=== PATIENT | female | born 1995 | race Caucasian/White ===

== ENCOUNTER 2022-09-24 07:10 | Inpatient (IN) | payer MEDICAID, SELFPAY ==
[2022-09-24] VITALS (47 sets, daily range): BP systolic 109–141; BP diastolic 54–96; PULSE 71–110; RESP 14; TEMP 36.4–37.1; O2SAT 98–100; BMI 47.9
[2022-09-24] MEDS: Lactated Ringers 1,000 ML 200 ML IV ×2 (08:15→12:54)
[2022-09-24] MEDS: Oxytocin 15 Units/NS 250ml 15 UNITS/250 ML IV.SOLN 2 UNITS IV (08:29)
[2022-09-24 08:47] LABS: Absolute Lymphocyte Count 2.38 X10^3/uL (0.83-4.51); Absolute Neutrophil Count 7.1 X10^3/uL (2.0-7.7); Basophil# 0.04 X10^3/uL; Basophil% 0.4 % (0-1); Eosinophil# 0.18 X10^3/uL; Eosinophils% 1.7 % (0-5); Hematocrit 35.9 % (37-47); Hemoglobin 11.6 g/dL (12.0-15.0); Lymphocyte # 2.38 X10^3/ul (0.83-4.51); Lymphocyte % 22.7 % (19-41); Mean Corp Hgb Conc 32.3 g/dL (32-36); Mean Corpuscular Volume 83.7 fL (81-99); Mean Platelet Vol. 10.5 fl (6.2-12.0); Monocyte# 0.66 X10^3/uL; Monocyte% 6.3 % (0-10); NRBC Flagged by Analyzer 0 % (0-5); Neutrophil # 7.13 X10^3/uL (2.7-7.7); Neutrophil % 68.1 % (47-70); Platelet Count 326 K/mm3 (150-450); RBC Distribution Width CV 14.5 % (11.6-14.6); RBC Distribution Width SD 43.5 fl (35.1-43.9); Red Blood Count 4.29 M/mm3 (4.2-5.4); White Blood Count 10.5 K/mm3 (4.4-11.0)
--- NOTE | 2022-09-24 08:54 | HP.PCM.OB_ITS ---
HPI - General General Date of Admission: 09/24/22 HPI Narrative SERENA LARA, is a 26 F at 39.5 weeks gestation who presents for a scheduled induction of labor for obesity. Maternal Data Information RYAN Calculator Estimated Delivery Date Method Current WG Current Estimate 09/26/22 Manual 39w 5d PFSH PFSH Home Medications tmmyfthe-[id number]-[id number]-FA 1 mg tablet 1 tab PO DAILY 09/24/22 [History Last Taken 09/23/22 06:00] Allergy/AdvReac Type Severity Reaction Status Date / Time No Known Allergies Allergy Verified 09/24/22 08:45 Social History Smoking Status: Former smoker History Elective abortions Hx Para 1 Spontaneous abortions Hx # Term Pregnancies Ectopic pregnancies Hx # Pregnancies Multiple births # of living children Visit Details OB Flowsheet Initial Weight: Not Recorded Date -?-?-?-?-?-?-?-?-?-?-?-?- EGA Weight BP Urine Prot -?-?-?-?-?-?-?-?-?-?-?-?- Glucose FHR FuHt Pres Dilation -?-?-?-?-?-?-?-?-?-?-?-?- Effaced St Visit Note 09/24/22 -?-?-?-?-?-?-?-?-?-?-?-?- 39w 5d 253 lb 8.505 oz 130/72 -?-?-?-?-?-?-?-?-?-?-?-?- -?-?-?-?-?-?-?-?-?-?-?-?- ROS Eyes Eyes: Denies blurry vision, change in vision or spots in vision ENT HEENT: Denies dizziness or headache(s) Cardiovascular Cardiovascular: Denies abdominal pain, chest pain or dyspnea Respiratory/Chest Respiratory/Chest: Denies cough, dyspnea, shortness of breath at rest or shortness of breath with exertion Gastrointestinal Gastrointestinal: Denies abdominal pain, diarrhea or vomiting Genitourinary Genitourinary: Denies change in urinary stream, difficulty urinating or dysuria Musculoskeletal Musculoskeletal: Reports none Integumentary Integumentary: Denies rash Neurologic Neurologic: Denies dizziness, headache(s), memory loss or weakness Psychiatric Psychiatric: Reports none Vital Signs Vital Signs Vital Signs: 09/24/22 07:55 09/24/22 07:55 09/24/22 07:55 Temperature Temperature Source Oral Pulse Rate 76 Blood Pressure 130/72 H BP Systolic 130 BP Diastolic 72 09/24/22 07:55 Temperature 98.0 F Temperature Source Pulse Rate Blood Pressure BP Systolic BP Diastolic Weight Weight: 253 lb 8.505 oz Body Mass Index (BMI) 47.9 Physical Exam Const alert, oriented x3 and no apparent distress General Appearance: cooperative Orientation / Consciousness: awake Exam Limitations: no limitations HEENT normocephalic Head and Scalp: normal to inspection Eyes General Eye: normal appearance of both eyes Neck full ROM and no lymphadenopathy Lymph Lymphatic: no lymphadenopathy noted Chest inspection of chest normal Resp normal respiratory effort, normal air movement and clear to auscultation bilaterally Effort and Inspection: able to speak in complete sentences and symmetric chest movement Cardio regular rate and regular rhythm GI normal to inspection, nondistended, normoactive bowel sounds Manual OB Exam: presentation cephalic Back/Spine normal ROM Extremity full ROM and no calf tenderness Skin no rashes or lesions noted General Skin Exam: no breakdown Neuro oriented x3 and CN's II-XII intact bilaterally Psych mental status grossly normal and thought process normal Labs Labs Labs: Blood Type Pending Antibody Screen Pending Hct 35.9 % (37-47) L Hgb 11.6 g/dL (12.0-15.0) L Syphilis Total Ab Pending GBS positive Assessment & Plan (1) 39 weeks gestation of : (2) Encounter for induction of labor: (3) Obesity affecting : (4) Positive GBS test: PLAN: Plan Admit to L&D Routine labs Start IV and run fluids per orders CE 260/-2 Start Pitocin IV at 2 mu/min and increase per policy Start PCN for GBS positive status Pain medication/epidural when indicated Anticipate Dr. Siegel notified of admission and is collaborating physician
[2022-09-24 09:03] LABS: Amphetamine Urine VISTA NEGATIVE (<1000 ng/mL); Barbiturate Urine VISTA NEGATIVE (< 200 ng/mL); Benzodiazepine Urine VISTA NEGATIVE (< 200 ng/mL); Cocaine Urine VISTA NEGATIVE (< 300 ng/mL); Ecstacy Urine VISTA NEGATIVE (< 500 ng/mL); Methadone Urine VISTA NEGATIVE (< 300 ng/mL); PCP Urine VISTA NEGATIVE (< 25 ng/mL); THC Urine VISTA NEGATIVE (< 50 ng/mL); Vista UDS pH Range 5
[2022-09-24 09:35] LABS: Syphilis Antibodies Non-reactive
[2022-09-24] MEDS: Penicillin G 3,000,000 Units 50 ML 100 UNITS IV (12:48)
[2022-09-24] MEDS: LACTATED RINGERS 500 ML 999 ML IV (12:54)
[2022-09-24] MEDS: fentaNYL-bupivacaine (epidural) 100 ML BAG EPIDURAL (14:00)
--- NOTE | 2022-09-24 18:55 | EX.PCM.OBRPT ---
Assessment & Plan (1) (spontaneous vaginal delivery): (2) Obesity affecting : Maternal Data Information RYAN Calculator Estimated Delivery Date Method Current WG Current Estimate 09/26/22 Manual 39w 5d Vaginal Delivery Maternal Presentation Maternal Presentation: Medically Indicated Induction Maternal Presentation: at 39.5 weeks for induction of labor for obesity. Patient's BMI >40. Type of Induction: Pitocin and Amniotomy Medical Reason for Induction: - (Obesity) Operative Information Date of Procedure: 09/24/22 Pre-Operative Diagnosis: Term gestation, induction of labor Post-Operative Diagnosis: , live male Surgery / Procedure Performed: Spontaneous Vaginal Delivery Type of Anesthesia: Epidural Drain: Guerrero to straight drain Estimated Blood Loss: 200 Time of Delivery: 18:44 Findings Description of Procedure: Patient pushing well with contractions. With maternal effort, head delivered over intact perineum. Loose cord around neck and body and was easily reduced during delivery of shoulders and remainder of body. Terminal meconium noted. Vigorous male placed on maternal abdomen and attended to by nursing staff. 3 vessel cord clamped and cut by FOB after delay. Cord blood collected. placed immediately skin to skin with patient. Pitocin IV started for active management of the third stage of labor. Placenta delivered spontaneously and intact. Fundus firm and 2 below U. Minimal bleeding. Vagina and perineum intact. EBL 200 cc. APGARS 8/9. Patient and infant bonding well at this time. Dr. Siegel notified of delivery. Presentation: Vertex Amniotic Membrane Rupture Type: Artificial Time of Membrane Rupture: 1230 Amniotic Fluid Description: Clear and - (Terminal meconium) Placental Delivery Description: Spontaneous Placenta Disposition: [facility] Cord Vessel Description: 3 Vessels Cord Entanglement: Around neck x 1, loose (Around body x 1) Nuchal Cord Compression: Without compression Infant A Gender: Male (1 minute): 8 (5 minute): 9 Delayed Cord Clamping: Yes Post Vaginal Delivery Medications Given After Delivery: IV Pitocin Episiotomy Description: None Laceration: None Complication Complications: None
[2022-09-24] MEDS: Methylergonovine 0.2 MG/ML Ampul IM (19:59)
[2022-09-24] MEDS: Acetaminophen 500 MG Tablet 1000 MG PO (20:30)
[2022-09-24] MEDS: Oxytocin 15 Units/NS 250ml 15 UNITS/250 ML IV.SOLN 334 UNITS IV (20:38)
--- NOTE | 2022-09-24 20:52 | NURSING ---
Pitocin IV infusing upon arrival at 1914.
[2022-09-25] VITALS (7 sets, daily range): BP systolic 109–126; BP diastolic 55–68; PULSE 78–94; RESP 14–16; TEMP 36.5–36.6; O2SAT 97
--- NOTE | 2022-09-25 08:58 | PCM.PN.OB ---
Subjective Subjective Patient seen at bedside. Ambulating and voiding without difficulty. Denies headache, dizziness, CP, or SOB. Lochia decreasing. with minimal support. Desires discharge home today. Objective Data Objective Data Vital Signs: Vital Signs Temp Pulse Resp BP Pulse Ox O2 Del Method 97.8 F 81 16 109/55 L 99 Room Air 09/25/22 03:23 09/25/22 08:32 09/25/22 03:23 09/25/22 08:32 09/24/22 21:10 09/25/22 03:23 Oxygen Delivery Method Room Air Weight: 253 lb 8.505 oz Body Mass Index (BMI) 47.9 Intake & Output: Intake and Output for Last 24 Hours 09/23/22 09/24/22 09/25/22 23:59 23:59 23:59 Intake Total 3253.75 / 3253.75 Output Total 525 / 525 800 / 800 Balance 2728.75 / 2728.75 -800 / -800 Lab / Micro Data Attestation: I reviewed the patient's lab results. Result Diagrams: 09/24/22 08:15 Labs: Laboratory Results - last 24 hr 09/24/22 08:15: Blood Type O POSITIVE, Antibody Screen NEGATIVE 09/24/22 08:15: Syphilis Total Ab Non-reactive 09/24/22 08:15: Urine Opiates Screen NEGATIVE, Urine Methadone Screen NEGATIVE, Ur Barbiturates Screen NEGATIVE, Ur Phencyclidine Scrn NEGATIVE, Ur Amphetamines Screen NEGATIVE, MDMA (Ecstasy) Screen NEGATIVE, U Benzodiazepines Scrn NEGATIVE, Urine Cocaine Screen NEGATIVE, U Cannabinoids Screen NEGATIVE ROS Eyes Eyes: Denies blurry vision, change in vision or spots in vision ENT HEENT: Denies dizziness or headache(s) Cardiovascular Cardiovascular: Denies abdominal pain, chest pain or dyspnea Respiratory/Chest Respiratory/Chest: Denies cough, dyspnea, shortness of breath at rest or shortness of breath with exertion Gastrointestinal Gastrointestinal: Denies abdominal pain, diarrhea or vomiting Genitourinary Genitourinary: Denies change in urinary stream, difficulty urinating or dysuria Musculoskeletal Musculoskeletal: Reports none Integumentary Integumentary: Denies rash Neurologic Neurologic: Denies dizziness, headache(s), memory loss or weakness Physical Exam Const alert and no apparent distress General Appearance: cooperative and comfortable Exam Limitations: no limitations HEENT normocephalic Eyes General Eye: normal appearance of both eyes Neck full ROM General: normal visual inspection Chest Chest: symmetrical chest wall rise Resp normal respiratory effort and normal air movement Effort and Inspection: symmetric chest movement Auscultation: clear to auscultation bilaterally Cardio regular rate and regular rhythm GI normal to inspection, nondistended, normoactive bowel sounds Back/Spine normal ROM Extremity full ROM and no calf tenderness General Extremity: normal exam except as noted Skin no rashes or lesions noted Neuro CN's II-XII intact bilaterally Psych mental status grossly normal Assessment & Plan (1) (spontaneous vaginal delivery): (2) Care and examination of lactating mother: PLAN: Plan PPD 1 Routine care support D/C home at 24 hours with follow up in office
--- NOTE | 2022-09-25 09:01 | PCM.DC ---
Discharge Instructions Diet Discharge Diet: No restrictions Activity Discharge Activity: Return to Normal Activity, May Shower and May Take a Tub Bath May resume sexual activity in: 4-6 weeks Weight Bearing Status: Weight bearing as tolerated Dressing / Incision Call your doctor if you observe: Fever of 101 or Higher, Inability to urinate, Using more than 1 pad per hour, Shortness of breath, Dizziness, Swelling in the ankles, Chest pain, Calf discomfort and Uncontrolled pain Follow Up Care Please Follow Up With: Milana Giles CNM When: Within 10 days Test Results: Test results from this visit will be discussed in further detail at your follow-up appointment, if applicable. Discharge Plan Admission Admit Date/Time: 09/24/22 07:10 Primary Reason for Your Visit: Labor and Delivery Attending Provider: Milana Giles Primary Care Provider: Christine Correa Discharge Orders/Prescriptions Prescriptions: Continued pmdbtgal-[id number]-[id number]-FA 1 mg Tablet 1 tab PO DAILY Referrals / Follow Up: Milana Giles CNM [Med Staff - [facility] Practice Prof] - Christine Correa DO [Primary Care Provider] - Disposition Disposition (needs filled in before D/C Order can be placed): Home, Self Care
[2022-09-25] MEDS: Dibucaine 30 GM Tube 1 APPLIC TOPICAL (10:03)
[2022-09-25] MEDS: Acetaminophen 500 MG Tablet 1000 MG PO (10:03)
--- NOTE | 2022-09-25 18:02 | CASEMGMT ---
Social Work Assessment? Labor and Delivery Unit? ? Patient [address] [address] [place] [address] [place] [address]? Phone number: [phone]? ? Date of Referral:?09/24/2022? Referred By:?Chan? Date of Intervention:?09/25/2022? Time of Intervention:??4:45? ? Reason for Referral:??Hx of dep/anxiety? ? History obtained from: medical records and mother of baby (MOB)? ? Household composition: MOB, FOB ([address]), 4 year old daughter, Jodie? ? Patient's parent/guardian status:??MOB and partner are in a relationship for 6 years and both are parents of both children within the household. MOB denies safety or DV concerns.? ? Medical History:? MOB reports 2 pregnancies/deliveries. MOB had care and denies any medical concerns. Baby Boy Kenyon weighed 6.10 with 8/9 apgars. No health concerns regarding baby.? ? Educational Status:?Bachelor degree, to attend grad school.? ? Financial Status:?Some financial concerns due to unpaid maternity leave and FOB being on disability.? ? Infant Supplies:??MOB reports having all supplies and bassinet/carseat.? ? Childcare/Caregiver(s):??FOB is on disability and will be home with children? ? Transportation:??No concerns? ? Programs/Agencies Involved:?WIC, Medicaid, [employer], food assistance, community action ? Children Services/Legal Issues:?None? ? Behavioral Health Issues: MOB reports history of ADHD, depression and anxiety. Denies taking any medications recently. Denies PPD with prior . No immediate family mental health concerns, cousin with bipolar. Denies substance abuse concerns. Hx of marijuana use but denies use since 2021 and was negative for substances.? Family/Social Stressors:??No concerns? ? Support Systems:?MOB?s mother and grandmother, friends, and work family? ? Depression: Education and resources provided, parents receptive.? Shaken Baby: Education and resources provided, parents receptive.? Safe Sleeping: Education and resources provided, parents receptive.? ? ASSESSMENT: MOB appropriate and expressed no current concerns regarding dep/anxiety. Resources given regarding PPD and community resource/counseling handout given for [facility]. Pt had financial concerns last fall due to moving but reports they received help through [employer] which relieved their concern. Pt is active with many community resources and was additionally given more information on resources.? .? PLAN:No other services requested or indicated. Melanie Oliveira EMPLOYEE COUNSELOR, LOAD OUT WORKER
== END 2022-09-25 18:52 | disposition home or self-care (01) | DRG 560 ==
PROVIDERS: Advanced Practice Midwife; Admitting Provider Advanced Practice Midwife; PCP Family Medicine; Visit Provider Advanced Practice Midwife
DX: O99.214 Obesity complicating childbirth (principal); Z37.0 Single live birth; E66.9 Obesity, unspecified; O69.81X0 Labor and delivery complicated by cord around neck, without compression, not applicable or unspecified; Z87.891 Personal history of nicotine dependence; Z3A.39 39 weeks gestation of pregnancy; O99.824 Streptococcus B carrier state complicating childbirth; O77.0 Labor and delivery complicated by meconium in amniotic fluid
CPT/HCPCS: 59025; 59050; 80307; 85025; 86780; 86850; 86900; 86901; 99221; J7120; G0378